=== PATIENT | female | born 1970 | race American Indian/Alaskan Native ===

== ENCOUNTER 2016-07-24 23:06 | Emergency (ER) | payer OTHER ==
[2016-07-24 23:31] VITALS: BP 107/74
[2016-07-25 00:06] LABS: Basophils % (Auto) 1.2 % (0.0-1.8); Eosinophils % (Auto) 0.2 % (0.0-4.3); Hematocrit 41.9 % (30.3-42.9); Hemoglobin 14.2 gm/dl (10.1-14.3); Mean Corpuscular HGB Conc 34 % (30-34); Mean Corpuscular Hemoglobin 29 pg (28-32); Mean Corpuscular Volume 85 fl (79-97); Platelet Count 237 K/mm3 (140-440); Red Blood Count 4.95 M/mm3 (3.65-5.03); Red Cell Distribution Width 14.8 % (13.2-15.2); White Blood Count 10.3 K/mm3 (4.5-11.0)
[2016-07-25 00:21] LABS: Anion Gap 21 mmol/L; BUN/Creatinine Ratio 15.55; Blood Urea Nitrogen 14 mg/dL (7-17); Calcium 9.3 mg/dL (8.4-10.2); Carbon Dioxide 19 mmol/L (22-30); Chloride 104.7 mmol/L (98-107); Glucose 124 mg/dL (65-100); Potassium 3.9 mmol/L (3.6-5.0); Sodium 141 mmol/L (137-145)
--- NOTE | 2016-07-26 00:25 | ED Elopement Review ---
ED Pt Elopement review - Results review Lab results: Laboratory Tests 07/24/16 07/24/16 23:50 Unknown WBC 10.3 RBC 4.95 Hgb 14.2 Hct 41.9 MCV 85 MCH 29 MCHC 34 RDW 14.8 Plt Count 237 Lymph % (Auto) 34.1 [place] % (Auto) 9.4 H Eos % (Auto) 0.2 Baso % (Auto) 1.2 Lymph # 3.5 [place] # 1.0 H Eos # 0.0 Baso # 0.1 Seg Neutrophils % 55.1 Seg Neutrophils # 5.7 Sodium 141 Potassium 3.9 Chloride 104.7 Carbon Dioxide 19 L Anion Gap 21 BUN 14 Creatinine 0.9 Estimated GFR > 60 BUN/Creatinine Ratio 15.55 Glucose 124 H Calcium 9.3 Troponin T < 0.010 - Call Back decision Pt Call Back Decision: No action required
== END 2016-07-25 03:00 | disposition left against medical advice (07) ==
LOC: ED 23:06
DX: R07.9 Chest pain, unspecified (principal); R06.02 Shortness of breath; R11.2 Nausea with vomiting, unspecified; F17.200 Nicotine dependence, unspecified, uncomplicated; Z53.21 Procedure and treatment not carried out due to patient leaving prior to being seen by health care provider
CPT/HCPCS: 36415; 80048; 84484; 85025; 93005; 93010

== ENCOUNTER 2019-02-26 20:46 | Emergency (ER) | payer OTHER ==
--- NOTE | 2019-02-26 21:09 | Event Note ---
ED Screening Note Date of service: 02/26/19 Time: 21:04 ED Screening Note: This is a 49 y.o. F. that presents to the ER with depression and anxiety. PMH of anxiety, depression, polysubstance, and ETOH abuse Patient brought in by counselor on 1013. Denies SI/HI This initial assessment/diagnostic orders/clinical plan/treatment(s) is/are subject to change based on patients health status, clinical progression and re- assessment by fellow clinical providers in the ED. Further treatment and workup at subsequent clinical providers discretion. Patient/guardian urged not to elope from the ED as their condition may be serious if not clinically assessed and managed. Initial orders include: Labs
--- NOTE | 2019-02-26 22:35 | Emergency Department Report ---
ED General Adult HPI - General Chief complaint: Psych Stated complaint: MENTAL HEALTH Time Seen by Provider: 02/26/19 21:03 Source: patient Mode of arrival: Ambulatory Limitations: No Limitations - History of Present Illness Initial comments: 39-year-old female with a history of anxiety and depression presents after being brought to emergency department by her counselor as patient has been abusing drugs. Patient denies SI or HI. Patient per her counselor is had a downward trend and is unable to take care of herself and thus a counselor put her on a 1013 and sent patient to the ER for evaluation. - Related Data Allergies Allergy/AdvReac Type Severity Reaction Status Date / Time No Known Allergies Allergy Unverified 07/30/14 07:51 ED Review of Systems ROS: Stated complaint: MENTAL HEALTH Other details as noted in HPI Constitutional: denies: chills, fever Eyes: denies: eye pain, eye discharge, vision change ENT: denies: ear pain, throat pain Respiratory: denies: cough, shortness of breath, wheezing Cardiovascular: denies: chest pain, palpitations Endocrine: no symptoms reported Gastrointestinal: denies: abdominal pain, nausea, diarrhea Genitourinary: denies: urgency, dysuria, discharge Musculoskeletal: denies: back pain, joint swelling, arthralgia Skin: denies: rash, lesions Neurological: denies: headache, weakness, paresthesias Psychiatric: depression. denies: anxiety Hematological/Lymphatic: denies: easy bleeding, easy bruising ED Past Medical Hx - Past Medical History Additional medical history: cardiomyopathy - Surgical History Additional Surgical History: foot surgery - Social History Smoking Status: Current Every Day Smoker Substance Use Type: Alcohol ED Physical Exam - General Limitations: No Limitations General appearance: alert, other (dishelved uncomfortable) - Head Head exam: Present: atraumatic, normocephalic - Eye Eye exam: Present: normal appearance - ENT ENT exam: Present: mucous membranes dry - Neck Neck exam: Present: normal inspection - Respiratory Respiratory exam: Present: normal lung sounds bilaterally. Absent: respiratory distress - Cardiovascular Cardiovascular Exam: Present: regular rate, normal rhythm. Absent: systolic murmur, diastolic murmur, rubs, gallop - GI/Abdominal GI/Abdominal exam: Present: soft, normal bowel sounds. Absent: distended, tenderness - Extremities Exam Extremities exam: Present: normal inspection - Back Exam Back exam: Present: normal inspection - Neurological Exam Neurological exam: Present: alert, oriented X3 - Psychiatric Psychiatric exam: Present: depressed. Absent: homicidal ideation, suicidal ideation - Skin Skin exam: Present: warm, dry, intact, normal color. Absent: rash ED Medical Decision Making - Medical Decision Making Patient evaluated by Behavioral health. Patient is medically clear. - Differential Diagnosis Psychosis; Depression; Electrolyte abnormality; Anemia Critical care attestation.: If time is entered above; I have spent that time in minutes in the direct care of this critically ill patient, excluding procedure time. ED Disposition Clinical Impression: Cocaine abuse, Depression Disposition: DC/TX-70 ANOTHER TYPE HLTHCARE Is pt being admited?: No Condition: Stable Referrals: VIGNESH WHITE MD [Primary Care Provider] - 3-5 Days Time of Disposition: 02:54
[2019-02-26 22:38] LABS: Bacteria,Urine 1+ /HPF (Negative); Bilirubin,Urine NEG (Negative); Blood,Urine MOD (Negative); Color,Urine Yellow (Yellow); Hyaline Casts,Urine 2 /LPF; Protein,Urine <15 mg/dL mg/dL (Negative); Urobilinogen,Urine < 2.0 mg/dL (<2.0); WBC,Urine < 1.0 /HPF (0.0-6.0)
[2019-02-26 22:44] LABS: Amphetamine Screen,Urine PRESUMPTIVE NEGATIVE; Benzodiazepines Screen,Urine PRESUMPTIVE NEGATIVE; Methadone Screen,Urine PRESUMPTIVE NEGATIVE; Opiate Screen,Urine PRESUMPTIVE NEGATIVE
[2019-02-26 23:01] LABS: Cannabinoid Screen,Urine PRESUMPTIVE POSITIVE; Cocaine Screen,Urine PRESUMPTIVE POSITIVE
[2019-02-27] MEDS ORDERED: ULTRAM PO ONE ×2 (00:15→17:10)
[2019-02-27] MEDS ORDERED: NAPROSYN PO ONE (11:36)
[2019-02-27 12:15] LABS: Basophils # (Auto) 0.1 K/mm3 (0.0-0.1); Basophils % (Auto) 1.2 % (0.0-1.8); Eosinophils % (Auto) 0.1 % (0.0-4.3); Hematocrit 43.2 % (30.3-42.9); Hemoglobin 14.6 gm/dl (10.1-14.3); Lymphocytes # (Auto) 1.2 K/mm3 (1.2-5.4); Lymphocytes % (Auto) 19.6 % (13.4-35.0); Mean Corpuscular HGB Conc 34 % (30-34); Mean Corpuscular Volume 91 fl (79-97); Monocytes # (Auto) 0.5 K/mm3 (0.0-0.8); Platelet Count 242 K/mm3 (140-440); Red Blood Count 4.75 M/mm3 (3.65-5.03); Red Cell Distribution Width 15.2 % (13.2-15.2)
--- NOTE | 2019-02-27 12:19 | Consultation ---
History of Present Illness - Reason for Consult Consult date: 02/27/19 Reason for consult: Initial Psychiatric Evaluation - History of Present Psychiatric Illness Current Psychiatric Medications: Past Psychiatric History: Past Medication Trials: History of Alcohol/Drug Abuse: History of Trauma/ Abuse: Family History of Psychiatric Illness and Substance Abuse: Mental Status Exam: Appearance: in hospital attire Behavior: regular eye contact Speech: regular rate and tone Mood: l Affect: congruent to mood Thought Process: circumstantial Thought Content: denies SI/HI's, AVH's, and delusions Motor Activity: laying in bed Cognition: A/O x 3 Insight: variable Judgment: poor Impression: MDD. Unspecified Anxiety DO. Today the patient was emotional during the assessment. DDx: R/O Bipolar DO Recommendation/Plan: 1. Continue . 2. Start mg PO daily for depression/Anxiety and V[place]rail 25 mg Po BID for anxiety. Discussed possible suicidality/medication induced ashly with the patient, she verbalized understanding. Disposition: The patient was referred to inpatient psy services. Will staff with Dr. Sharif Zaidi. Medications and Allergies Allergies Allergy/AdvReac Type Severity Reaction Status Date / Time No Known Allergies Allergy Unverified 07/30/14 07:51 Home Medications Medication Instructions Recorded Confirmed Last Taken Type No Known Home Medications [No 02/27/19 02/27/19 Unknown History Reported Home Medications] Mental Status Exam - Vital signs Last Vital Signs Temp 98 F 02/27/19 10:05 Pulse 98 H 02/27/19 10:05 Resp 20 02/27/19 10:05 BP 145/79 02/27/19 10:05 Pulse Ox 98 02/27/19 10:05 Results Result Diagrams: 02/27/19 11:50 Abnormal lab results 02/27/19 Range/Units 11:50 Hgb 14.6 H (10.1-14.3) gm/dl Hct 43.2 H (30.3-42.9) % [place] % (Auto) 9.0 H (0.0-7.3) % Seg Neutrophils % 70.1 H (40.0-70.0) % All other labs normal.
[2019-02-27 12:23] LABS: BUN/Creatinine Ratio 9; Blood Urea Nitrogen 6 mg/dL (7-17); Hemolysis Index 10
[2019-02-27 20:25] VITALS: BP 111/66
== END 2019-02-27 22:45 ==
LOC: ED 20:46 → EEVIPCON 20:46 → ED 02-27 22:45
DX: F14.10 Cocaine abuse, uncomplicated (principal); F32.9 Major depressive disorder, single episode, unspecified; F17.200 Nicotine dependence, unspecified, uncomplicated; F41.9 Anxiety disorder, unspecified; Z98.890 Other specified postprocedural states
CPT/HCPCS: 36415; 80048; 80307; 80320; 81001; 85025; G0480

== ENCOUNTER 2020-03-23 23:08 | Emergency (ER) | payer OTHER ==
[2020-03-23] MEDS ORDERED: ASPIRIN 325 MG TAB PO ONE (23:22)
[2020-03-24 00:17] LABS: Basophils % (Auto) 0.5 % (0.0-1.8); Eosinophils % (Auto) 0.3 % (0.0-4.3); Hematocrit 41.1 % (30.3-42.9); Hemoglobin 13.7 gm/dl (10.1-14.3); Lymphocytes # (Auto) 1.3 K/mm3 (1.2-5.4); Lymphocytes % (Auto) 23.7 % (13.4-35.0); Mean Corpuscular HGB Conc 33 % (30-34); Mean Corpuscular Volume 94 fl (79-97); Monocytes # (Auto) 0.6 K/mm3 (0.0-0.8); Monocytes % (Auto) 9.8 % (0.0-7.3); Platelet Count 244 K/mm3 (140-440); Red Blood Count 4.38 M/mm3 (3.65-5.03); Red Cell Distribution Width 15.9 % (13.2-15.2)
[2020-03-24 00:22] LABS: Alanine Aminotransferase 63 units/L (7-56); Albumin 3.4 g/dL (3.9-5); BUN/Creatinine Ratio 14; Blood Urea Nitrogen 13 mg/dL (7-17); Calcium 8.6 mg/dL (8.4-10.2); Hemolysis Index 6
--- NOTE | 2020-03-24 01:14 | Emergency Department Report ---
ED Shortness of Breath HPI - General Chief Complaint: Dyspnea/Respdistress Stated Complaint: ABD PAIN/CHEST PAIN Time Seen by Provider: 03/24/20 00:45 Source: patient Mode of arrival: Wheelchair Limitations: No Limitations - History of Present Illness Initial Comments: Patient is 50 years old female with history of asthma and cardiomyopathy. Patient presented to the ER complaining of shortness of breath and difficulty breathing and bilateral lower extremity swelling for the last 2 weeks. Patient stated that she has been evaluated multiple times as an outpatient but she is not feeling better. Patient denied any fever or chills. She also denied any chest pain, nausea or vomiting. MD Complaint: shortness of breath, cough -: week(s) (2) Consistency: constant Known History Of: asthma, congestive heart failure Associated Symptoms: denies other symptoms Treatments Prior to Arrival: none - Related Data Previous Rx's Medication Instructions Recorded Last Taken Type levoFLOXacin [Levaquin TAB] 500 mg PO QDAY #7 tablet 03/24/20 Unknown Rx Allergies Allergy/AdvReac Type Severity Reaction Status Date / Time No Known Allergies Allergy Unverified 07/30/14 07:51 ED Review of Systems ROS: Stated complaint: ABD PAIN/CHEST PAIN Other details as noted in HPI Comment: All other systems reviewed and negative Constitutional: denies: chills, fever Respiratory: cough, orthopnea, shortness of breath, SOB with exertion, wheezing Cardiovascular: denies: chest pain, palpitations Gastrointestinal: denies: abdominal pain, nausea, vomiting, diarrhea, co nstipation, hematemesis, melena, hematochezia Musculoskeletal: denies: back pain Neurological: denies: headache, weakness, numbness, paresthesias, confusion, abnormal gait ED Past Medical Hx - Past Medical History Previous Medical History?: Yes Hx Asthma: Yes Additional medical history: cardiomyopathy - Surgical History Past Surgical History?: Yes Additional Surgical History: foot surgery - Social History Smoking Status: Current Some Day Smoker Substance Use Type: Cocaine, Marijuana - Medications Home Medications: Home Medications Medication Instructions Recorded Confirmed Last Taken Type levoFLOXacin [Levaquin TAB] 500 mg PO QDAY #7 tablet 03/24/20 Unknown Rx ED Physical Exam - General Limitations: No Limitations General appearance: alert, in no apparent distress - Head Head exam: Present: atraumatic, normocephalic, normal inspection - Eye Eye exam: Present: normal appearance - ENT ENT exam: Present: normal exam, normal orophraynx, mucous membranes moist - Neck Neck exam: Present: normal inspection, full ROM. Absent: tenderness, meningismus, lymphadenopathy, thyromegaly - Respiratory Respiratory exam: Present: normal lung sounds bilaterally - Cardiovascular Cardiovascular Exam: Present: regular rate, normal rhythm, normal heart sounds - GI/Abdominal GI/Abdominal exam: Present: soft, normal bowel sounds. Absent: distended, tenderness, guarding, rebound, rigid, organomegaly, mass, bruit, pulsatile mass, hernia - Extremities Exam Extremities exam: Present: normal inspection, full ROM, normal capillary refill. Absent: tenderness - Back Exam Back exam: Present: normal inspection, full ROM. Absent: CVA tenderness (R), CVA tenderness (L) - Neurological Exam Neurological exam: Present: alert, oriented X3, CN II-XII intact - Psychiatric Psychiatric exam: Present: normal mood - Skin Skin exam: Present: warm, intact, normal color ED Course Vital Signs 03/23/20 03/24/20 03/24/20 23:20 00:56 00:57 Temperature 97.4 F L 98.0 F Pulse Rate 78 83 83 Respiratory 18 18 20 Rate Blood Pressure 100/70 90/67 O2 Sat by Pulse 96 99 98 Oximetry 03/24/20 03/24/20 01:00 01:15 Temperature Pulse Rate 88 85 Respiratory 16 15 Rate Blood Pressure 89/60 90/67 O2 Sat by Pulse 99 99 Oximetry ED Medical Decision Making - Lab Data Result diagrams: 03/23/20 23:40 03/23/20 23:40 - EKG Data -: EKG Interpreted by Ca EKG shows normal: sinus rhythm Rate: normal - EKG Data Interpretation: no acute changes - Radiology Data Radiology results: report reviewed - Medical Decision Making Patient is 50 years old female with history of asthma and cardiomyopathy. Patient presented to the ER complaining of shortness of breath and difficulty breathing and bilateral lower extremity swelling for the last 2 weeks. Patient stated that she has been evaluated multiple times as an outpatient but she is not feeling better. Patient denied any fever or chills. She also denied any chest pain, nausea or vomiting. Patient remained stable in the emergency room. Chest x-ray showed right lower lobe pneumonia. Patient received Levaquin 500 mg IV. Patient given prescription for Levaquin and advised to follow-up with her primary doctor in the next 2 to 3 days and to return to the ER if she develop any new symptoms. Critical care attestation.: If time is entered above; I have spent that time in minutes in the direct care of this critically ill patient, excluding procedure time. ED Disposition Clinical Impression: Right lower lobe pneumonia Disposition: DC-01 TO HOME OR SELFCARE Is pt being admited?: No Condition: Stable Instructions: Bacterial Pneumonia (ED) Referrals: PRIMARY CARE, [Primary Care Provider] - 3-5 Days
[2020-03-24 01:21] VITALS: BP 90/67
[2020-03-24] MEDS ORDERED: MORPHINE 4 MG/1 ML INJ IM ONE (01:31)
[2020-03-24] MEDS ORDERED: ONDANSETRON 4 MG/2 ML INJ IV ONE (01:31)
--- NOTE | 2020-03-24 01:32 | XRay Report ---
CHEST 1 VIEW INDICATION: Chest Pain. COMPARISON: None. FINDINGS: Support devices: None. Heart: Normal. Lungs/Pleura: Ill-defined opacity projects over the right lower lung. Left lung is clear. No pleural abnormality. IMPRESSION: 1. Ill-defined right lower lung opacity is concerning for pneumonia. Follow-up is recommended. Signer Name: Trip Carlos MD Signed: 03/24/2020 1:27 AM Workstation Name: [email or web address]
[2020-03-24] MEDS ORDERED: AZITHROMYCIN 500 MG in SODIUM CHLORIDE 0.9% 250ML 250 ML IV ONE (01:52)
[2020-03-24] MEDS ORDERED: cefTRIAXone/NS 1 GM/50 ML 1 GM/50 ML BAG IV ONE (01:52)
[2020-03-24] MEDS ORDERED: SODIUM CHLORIDE 0.9% 500 ML 500 ML ONE (01:57)
[2020-03-24] MEDS ORDERED: SODIUM CHLORIDE 0.9% 500 ML 500 ML IV ONE (02:00)
[2020-03-24 02:36] LABS: Bilirubin,Urine NEG (Negative); Blood,Urine NEG (Negative); Color,Urine Yellow (Yellow); WBC,Urine < 1.0 /HPF (0.0-6.0)
[2020-03-24] MEDS ORDERED: diphenhydrAMINE 50 MG/ML VIAL IV ONE (03:33)
== END 2020-03-24 05:44 | disposition home or self-care (01) ==
LOC: ED 23:08
DX: J16.8 Pneumonia due to other specified infectious organisms (principal)
CPT/HCPCS: 36415; 71045; 80053; 81001; 83880; 84484; 84703; 85025; 87040; 93005; 96365; 96372; 96375; 99284; J1200; J1956; J2270; J2405; J7040

== ENCOUNTER 2020-03-25 03:14 | Emergency (ER) | payer OTHER ==
[2020-03-25 03:57] VITALS: BP 103/76
== END 2020-03-25 07:09 ==
LOC: ED 03:14
DX: M79.89 Other specified soft tissue disorders (principal); J18.9 Pneumonia, unspecified organism; Z53.21 Procedure and treatment not carried out due to patient leaving prior to being seen by health care provider

== ENCOUNTER 2020-05-25 11:13 | Emergency (ER) | payer OTHER ==
--- NOTE | 2020-05-25 11:40 | Event Note ---
ED Screening Note ED Screening Note: hx of cardiomyopathy states she has been having SOB for three days ago states she has swelling bilateral legs mild cough palpitations fatigue exertional SOB +smoker allergy: none english instructor: francois heart This initial assessment/diagnostic orders/clinical plan/treatment(s) is/are subject to change based on patients health status, clinical progression and re- assessment by fellow clinical providers in the ED. Further treatment and workup at subsequent clinical providers discretion. Patient/guardian urged not to elope from the ED as their condition may be serious if not clinically assessed and managed. Initial orders include: labs, EKG, CXR
--- NOTE | 2020-05-25 12:50 | XRay Report ---
CHEST 2 VIEWS INDICATION / CLINICAL INFORMATION: SOB. COMPARISON: 03/24/2020 FINDINGS: SUPPORT DEVICES: None. HEART / MEDIASTINUM: Mild cardiomegaly LUNGS / PLEURA: No significant pulmonary or pleural abnormality. No pneumothorax. ADDITIONAL FINDINGS: No significant additional findings. IMPRESSION: Mild cardiomegaly unchanged from 03/24/2020. No acute pulmonary or pleural abnormality Signer Name: Markos Bah MD FACR Signed: 05/25/2020 12:44 PM Workstation Name: [email or web address]
[2020-05-25 14:04] LABS: Basophils % (Auto) 0.7 % (0.0-1.8); Hemoglobin 13.8 gm/dl (10.1-14.3); Lymphocytes # (Auto) 0.8 K/mm3 (1.2-5.4); Lymphocytes % (Auto) 11.3 % (13.4-35.0); Mean Corpuscular HGB Conc 33 % (30-34); Mean Corpuscular Volume 86 fl (79-97); Monocytes # (Auto) 0.8 K/mm3 (0.0-0.8); Monocytes % (Auto) 12.1 % (0.0-7.3); Platelet Count 233 K/mm3 (140-440); Red Blood Count 4.91 M/mm3 (3.65-5.03); Red Cell Distribution Width 18.9 % (13.2-15.2)
[2020-05-25 14:26] LABS: Alanine Aminotransferase 157 units/L (7-56); Albumin 3.5 g/dL (3.9-5); BUN/Creatinine Ratio 12; Blood Urea Nitrogen 12 mg/dL (7-17); Calcium 8.7 mg/dL (8.4-10.2); Hemolysis Index 6
[2020-05-25 15:28] VITALS: BP 148/70
== END 2020-05-25 15:38 | disposition left against medical advice (07) ==
LOC: ED 11:13
DX: R06.02 Shortness of breath (principal); Z53.21 Procedure and treatment not carried out due to patient leaving prior to being seen by health care provider
CPT/HCPCS: 36415; 71046; 80053; 82550; 83735; 83880; 84443; 84484; 85025; 93005

== ENCOUNTER 2020-08-12 18:33 | Emergency (ER) | payer OTHER ==
--- NOTE | 2020-08-12 18:51 | Emergency Department Report ---
ED CPR HPI - General Chief Complaint: Cardiac Arrest/CPR Stated Complaint: CARDIA ARREST Time Seen by Provider: 08/12/20 18:33 Source: EMS, old records reviewed Mode of arrival: Stretcher Limitations: Altered Mental Status, Physical Limitation - History of Present Illness Initial Comments: Patient is a 50-year-old female that presents emergency room with EMS for cardiac arrest. Report received from EMS. EMS states the patient was found down. Patient was given multiple rounds of epi, bicarb and Narcan. Patient has not responded. Patient has been PEA the entire time. Patient intubated with a Vernon tube. Bilateral breath sounds noted. Patient's pupils are fixed and dilated. Patient has been down for 50 minutes. MD Complaint: found unresponsive Onset/Timin -: minute(s) Place: home Bystander CPR Performed: No AED Applied by Bystander/Police Dispatcher: No Shock Advised: No Initial Findings in the Field: unresponsive, no respirations, no pulse, PEA ROSC in the Field: No Associated Injuries: No Treatments Prior to Arrival: intubation, BMV, other airway device, epinephrine mgs #, sodium bicarbonate - Related Data Previous Rx's Medication Instructions Recorded Last Taken Type Furosemide [Lasix] 20 mg PO QDAY #7 tablet 03/24/20 Unknown Rx Ondansetron [Zofran Odt] 4 mg PO Q8HR PRN #14 tab.rapdis 03/24/20 Unknown Rx levoFLOXacin [Levaquin TAB] 500 mg PO QDAY #7 tablet 03/24/20 Unknown Rx Allergies Allergy/AdvReac Type Severity Reaction Status Date / Time No Known Allergies Allergy Unverified 07/30/14 07:51 ED Review of Systems ROS: Stated complaint: CARDIA ARREST Other details as noted in HPI Comment: Unobtainable due to pts medical conditions ED Past Medical Hx - Past Medical History Previous Medical History?: Yes Hx Asthma: Yes Additional medical history: cardiomyopathy - Surgical History Past Surgical History?: Yes Additional Surgical History: foot surgery - Family History Family history: no significant - Social History Smoking Status: Current Every Day Smoker Substance Use Type: None - Medications Home Medications: Home Medications Medication Instructions Recorded Confirmed Last Taken Type Furosemide [Lasix] 20 mg PO QDAY #7 tablet 03/24/20 Unknown Rx Ondansetron [Zofran Odt] 4 mg PO Q8HR PRN #14 tab.rapdis 03/24/20 Unknown Rx levoFLOXacin [Levaquin TAB] 500 mg PO QDAY #7 tablet 03/24/20 Unknown Rx ED Physical Exam - General General appearance: obtunded - Head Head exam: Present: atraumatic, normocephalic - Eye Pupils: Present: other (Pupils are fixed and dilated.) - ENT ENT exam: Present: mucous membranes dry, other (Vernon tube in place) - Neck Neck exam: Present: normal inspection - Respiratory Respiratory exam: Present: normal lung sounds bilaterally, decreased breath sounds - Cardiovascular Cardiovascular Exam: Present: other (No pulse noted.) - GI/Abdominal GI/Abdominal exam: Present: soft, distended - Rectal Rectal exam: Present: deferred - Extremities Exam Extremities exam: Present: normal inspection - Neurological Exam Neurological exam: Present: altered - Skin Skin exam: Present: warm, dry, intact, normal color. Absent: rash ED Course - Reevaluation(s) Reevaluation #1: Patient arrived via EMS. Patient is asystole on the monitor. Patient tra nsferred to our rwilson and CPR was continued. 08/12/20 18:30 Reevaluation #2: Resuscitation efforts were terminated due to no signs of life. Patient is PEA on the monitor. Patient given multiple rounds of CPR. Ultrasound shows no cardiac motion. No pulse noted. Family support was given once the family arrives. 08/12/20 18:44 Reevaluation #3: Family meeting done with family. I addressed all questions and concerns with family. Family support given 08/12/20 20:07 ED Medical Decision Making - Medical Decision Making Patient is a 50-year-old female that presents emergency room with cardiac arrest. Patient found unresponsive by EMS. EMS initiated CPR and ACLS protocols. Patient was given bicarb, intubated with a Vernon tube, multiple rounds of epinephrine and Narcan. An IV was also established by EMS. Patient was transferred to our stretcher. Patient's CPR and code was continued. Code ran in accordance with ACLS guidelines. See code note transcribed by the nurse. Patient given multiple rounds of medications. Patient had spontaneous return of circulation for brief moments resuscitation efforts were finally terminated due to no signs of life, no cardiac motion, no pulse. Code ran in accordance with ACLS guidelines. Family support given once the family arrived. Prior to the arrival of the patient, and EMS report received via the radio. Report was also received once EMS arrived. Critical care was documented due to the prolonged time at bedside. After the patient arrived, I stated the bedtime the entire time to the patient was pronounced. - Differential Diagnosis Cardiac arrest, [place], respiratory arrest, overdose Critical Care Time: Yes Critical care time in (mins) excluding proc time.: 35 Critical care attestation.: If time is entered above; I have spent that time in minutes in the direct care of this critically ill patient, excluding procedure time. Critical Care Time: 35 MINUTES ED Disposition Clinical Impression: Cardiac arrest Disposition: DC-20 Is pt being admited?: No Does the pt Need Aspirin: No Condition: Critical Time of Disposition: 20:09
== END 2020-08-12 22:49 ==
LOC: ED 18:33
DX: I46.9 Cardiac arrest, cause unspecified (principal); J45.909 Unspecified asthma, uncomplicated; F17.200 Nicotine dependence, unspecified, uncomplicated; Z79.899 Other long term (current) drug therapy; Z98.890 Other specified postprocedural states
CPT/HCPCS: 92950